=== PATIENT | female | born 1955 | race Caucasian/White ===

== ENCOUNTER 2016-10-17 00:49 | Emergency (ER) | payer BC, OTHER ==
[2016-10-17 00:54] VITALS: BP 178/90; PULSE 58; TEMP 98.1; BMI 25.0
[2016-10-17] MEDS ORDERED: ALPRAZolam 0.25 MG TABLET PO ONE (00:56)
[2016-10-17] MEDS ORDERED: ALPRAZolam 0.25 MG TABLET ONE (00:57)
[2016-10-17] MEDS ORDERED: DEXAMETHASONE SOD PHOSPHATE 10 MG/1 ML VIAL ONE (00:57)
[2016-10-17] MEDS ORDERED: DEXAMETHASONE SOD PHOSPHATE 10 MG/1 ML VIAL IM ONE (00:57)
--- NOTE | 2016-10-17 01:02 | PDOC ---
History of Present Illness - General Chief Complaint: Rash Stated Complaint: RASH TO BILAT HANDS Time Seen by Provider: 10/17/16 00:55 History Source: Patient Exam Limitations: No Limitations - History of Present Illness Initial Comments: 10/17/16 00:57 This is a 61-year-old female who was gardening today and was exposed to most likely poison maru however the rash has not fully developed and it is on clear as to exactly what she may have been exposed to. Patient said she woke up this evening with intense itching of her hands and forearms. Patient was not wearing gloves when she was gardening. Patient otherwise denies any shortness of breath any W 13 days her mouth or tongue or swelling of her throat. Patient one Benadryl without relief so came in for evaluation. PAST MEDICAL HISTORY: no significant history PAST SURGICAL HISTORY: no significant history FAMILY HISTORY: no pertinant history SOCIAL HISTORY: Pt lives with family and is employed. MEDICATIONS: reviewed ALLERGIES: As per nursing notes Review of Systems General: No fevers or chills, no weakness, no weight loss HEENT: No change in vision. No sore throat,. No ear pain CardioVascular: No chest pain or shortness of breath Respiratory:No cough, or wheezing. Gastrointestinal: no nausea, vomitting, diarrhea or constipation, No rectal bleeding Genitourinary: No dysuria, hematuria, or frequency Musculoskeletal: No joint or muscle pain or swelling Neurologic: No headache, vertigo, dizziness or loss of consciousness Psychiatric: nor depression Skin: Rash on hands and forearms Endocrine: no increased thirst or abnormal weight change Allergic: Itching of hands and forearms All other systems reviewed and normal GENERAL: The patient is awake, alert, and fully oriented, in no acute distress. HEAD: Normal with no signs of trauma. EYES: Pupils equal, round and reactive to light, extraocular movements intact, sclera anicteric, conjunctiva clear. EXTREMITIES: Normal range of motion, no edema. Hands and forearms: There is some swelling and erythema of the hands and forearms with areas of excoriation where patient has been itching. NEUROLOGICAL: Normal speech, normal gait. PSYCH: Normal mood, normal affect. SKIN: Warm, Dry, normal turgor, no rashes or lesions noted. Assessment and plan: This is a 61-year-old female comes in complaining of a ALLERGIC reaction. Patient is very anxious and she was given Xanax for the anxiety in addition to that she was given Decadron and Benadryl IM. Patient was given prescription for a Medrol Dosepak and discharged home. Patient will follow -up with her doctor as needed. Past History - Past Medical History Allergies/Adverse Reactions: Allergies Allergy/AdvReac Type Severity Reaction Status Date / Time No Known Allergies Allergy Unverified 10/17/16 00:53 Home Medications: Ambulatory Orders Methylprednisolone [Medrol Dose Placido] 4 mg PO ASDIR #21 tablet 10/17/16 Prednisone [Prednisone 50 MG TABLETS] 50 mg PO DAILY #4 tablet 10/17/16 - Psycho/Social/Smoking Cessation Hx Anxiety: No Suicidal Ideation: No Smoking History: Unknown if ever smoked Have you smoked in the past 12 months: No Number of Cigarettes Smoked Daily: 0 Information on smoking cessation initiated: No Hx Alcohol Use: No Drug/Substance Use Hx: No Substance Use Type: None *Physical Exam - Vital Signs Last Vital Signs Temp Pulse Resp BP Pulse Ox 98.1 F 58 L 14 178/90 98 10/17/16 00:50 10/17/16 00:50 10/17/16 00:50 10/17/16 00:50 10/17/16 00:50 *DC/Admit/Observation/Transfer Diagnosis at time of Disposition: Contact dermatitis Qualifiers: Contact dermatitis type: allergic Contact dermatitis trigger: non-food plants Qualified Code(s): L23.7 - Allergic contact dermatitis due to plants, except food - Discharge Dispostion Disposition: HOME Condition at time of disposition: Good Admit: No - Patient Instructions Additional Instructions: Take prednisone 150 mg tablet once a day for 4 days then start the Medrol Dosepak. The Medrol Dosepak is a steroid taper and by the time it is done your symptoms should have nearly resolved. In addition to that get an [id number] long-acting antihistamine such as Claritin or Kelly and take one a day for the next week. Return to the emergency department immediately with ANY new, persistent or worsening symptoms. Continue any medications as previously prescribed by your physician. You should follow up with your primary doctor as soon as possible regarding today's emergency department visit. . Please make sure your doctor reviews the results of your emergency evaluation. Thank you for coming to the Emergency Department today for your care. It was a pleasure to see you today. Please note that your evaluation is INCOMPLETE until you follow-up with your doctor.
== END 2016-10-17 01:10 | disposition home or self-care (01) ==
LOC: FER 00:49
DX: L23.7 Allergic contact dermatitis due to plants, except food (principal)
CPT/HCPCS: 99282-25